=== PATIENT | male | born 1960 | race Asian ===

== ENCOUNTER → 2019-10-17 | Outpatient (CLI) | payer OTHER ==
[2019-10-21 15:30] LABS: QUANTIFERON+, Nil Value 0.09 IU/mL; QUANTIFERON+,Mitogen Value 1.32 IU/mL; QUANTIFERON+,TB1 Antigen Value 0.09 IU/mL; QUANTIFERON, TB GOLD PLUS Negative (Negative)
== END | disposition home or self-care (01) ==
LOC: LABPV 11:11
PROVIDERS: ATTEND Family Medicine
DX: Z02.89 Encounter for other administrative examinations (principal)
CPT/HCPCS: 86480; 86592; 86706; 86803; 87340; 87491; 87591